=== PATIENT | female | born 1945 | race Caucasian/White ===

== ENCOUNTER → 2017-03-27 | Outpatient (CLI) | payer OTHER | LOC: BMCIMAGING 10:02 | PROVIDERS: ATTEND Nurse Practitioner Adult Health | DX: K59.00 Constipation, unspecified (principal); I72.8 Aneurysm of other specified arteries ==

== ENCOUNTER → 2017-04-23 | Outpatient (CLI) | payer OTHER | LOC: BMCIMAGING 12:15 | PROVIDERS: ATTEND Internal Medicine | DX: R07.9 Chest pain, unspecified (principal); E78.5 Hyperlipidemia, unspecified ==

== ENCOUNTER 2017-04-24 09:43 | Day surgery (SDC) | payer OTHER ==
[2017-04-24] MEDS ORDERED: diphenhydrAMINE 25 MG CAP PO ONE ×2 (09:50→09:55)
[2017-04-24] MEDS ORDERED: NS 1,000 ML IV ONE (09:50)
[2017-04-24] MEDS ORDERED: FAMOTIDINE 20 MG TAB PO ONE (09:50)
[2017-04-24] MEDS ORDERED: DIAZEPAM 5 MG TAB PO ONE (09:50)
[2017-04-24] MEDS ORDERED: ASPIRIN EC 325 MG TAB PO ONE ×2 (09:50→09:55)
[2017-04-24] MEDS ORDERED: FAMOTIDINE 20 MG TAB ONE (09:55)
[2017-04-24] MEDS ORDERED: DIAZEPAM 5 MG TAB ONE (09:56)
--- NOTE | 2017-04-24 10:06 | CPEKG ---
Heart Rate: 57 RR Interval: 1053 P-R Interval: 180 QRSD Interval: 76 QT Interval: 436 QTC Interval: 425 P [place]: 31 QRS [place]: 50 T Wave [place]: 43 EKG Severity - ABNORMAL ECG - EKG Impression: SINUS RHYTHM EKG Impression: CONSIDER LEFT VENTRICULAR HYPERTROPHY Electronically Signed By: Bogdan Xiao 24-Apr-2017 16:07:56
[2017-04-24] MEDS ORDERED: ASPIRIN EC 81 MG TAB PO ONE (10:22)
[2017-04-24 10:25] LABS: % IMMATURE GRANULYOCYTES 0.2 % (0.0-1.1); ABSOLUTE IMMATURE GRANULOCYTES 0.01 10^3/uL (0.00-0.10); ADD DIFF? NO; ADD MORPH? NO; ADD SCAN? NO; ATYPICAL LYMPHOCYTE FLAG 10 (0-99); FRAGMENT RBC FLAG 0 (0-99); HEMATOCRIT 42.7 % (38.0-47.0); HEMOGLOBIN 14.4 g/dL (12.6-16.3); LEFT SHIFT FLG 0 (0-99); LIPEMIA HEMOLYSIS FLAG 80 (0-99); MEAN CELL HEMOGLOBIN 31.5 pg (27.9-34.1); MEAN CELL HEMOGLOBIN CONCENTR. 33.7 g/dL (32.4-36.7); MEAN CELL VOLUME 93.4 fL (81.5-99.8); MEAN PLATELET VOLUME 10.7 fL (8.7-11.7); PLATELET CLUMPS FLAG 0 (0-99); PLATELET COUNT 219 10^3/uL (150-400); RED BLOOD CELL COUNT 4.57 10^6/uL (4.18-5.33); RED CELL DISTRIBUTION WIDTH 13.1 % (11.5-15.2)
[2017-04-24 10:34] LABS: INR 0.94 (0.83-1.16); PROTIME(PATIENT) 12.5 SEC (12.0-15.0)
[2017-04-24 10:49] LABS: ANION GAP 10 mEq/L (8-16); CALCIUM 9.8 mg/dL (8.5-10.4); CARBON DIOXIDE 26 mEq/l (22-31); CHLORIDE 107 mEq/L (97-110); CHOLESTEROL 206 mg/dL (140-220); CHOLESTEROL/HDL RATIO 2.71 RATIO (1.00-4.44); CREATININE 0.6 mg/dL (0.6-1.0); GLOMERULAR FILTRATION RATE > 60; GLUCOSE 96 mg/dL (70-100); HIGH DENSITY LIPOPROTEIN 76 mg/dL (40-85); LDL/HDL RATIO 1.55 RATIO (1.00-3.22); LOW DENSITY LIPOPROTEIN 118 mg/dL (80-100); MAGNESIUM 2.2 mg/dL (1.6-2.3); NON-HIGH DENSITY LIPOPROTEIN 130 mg/dL (90-129); POTASSIUM 4.3 mEq/L (3.5-5.2); SODIUM 143 mEq/L (134-144); TRIGLYCERIDE 62 mg/dL (35-135); VERY LOW DENSITY LIPOPROTEINS 12 mg/dL (8-25)
[2017-04-24] MEDS ORDERED: LIDOCAINE 1% 300 MG/30 ML SDV ONE (13:38)
[2017-04-24] MEDS ORDERED: MIDAZOLAM 2 MG/2 ML VIAL ONE ×2 (13:39→14:35)
[2017-04-24] MEDS ORDERED: VERAPAMIL 5 MG/2 ML VIAL ONE (13:39)
[2017-04-24] MEDS ORDERED: HEPARIN 10,000 UNIT/10 ML MDV ONE (13:39)
[2017-04-24] MEDS ORDERED: IOPAMIDOL (ISOVUE-370) 150 ML BTL IV ONE (13:39)
[2017-04-24] MEDS ORDERED: fentaNYL 100 MCG/2 ML INJ ONE (13:39)
--- NOTE | 2017-04-24 16:06 | PDDXCAT ---
Diagnostic Cath Note - . Date: 04/24/17 Manager Leadership Development: Yeyo Intervention: none *Procedure 1. selective coronary angiography 2. left heart catheterization Indication: CCS Class III angina and intermediate risk stress test Access: Right radial *Materials Left Heart Cath size: 6F Left Heart Cath materials: JL3.5, JR4.0, pigtail *Findings- selective coronary angiography LM: The Left Main is ~8 mm in size. It trifurcates into an LAD, Ramus and circumflex system. There is no evidence of flow-obstructing disease. LEAH III flow is present throughout. Ramus: The Ramus is ~2.5 mm in size. There is no evidence of flow-limiting disease and there is LEAH III flow. LAD: The LAD is ~3.5 mm in size. There is no evidence of flow-limiting disease. Max luminal stenosis is approximately 5- 10%. LEAH III flow present. LCX: The LCX is ~2.5 mm in size and there is no evidence of flow-limiting disease and there is LEAH III flow throughout. RCA: The RCA is 3 mm in size. There is no evidence of flow-limiting disease. The right ventricular branch is quite high in its take off from the proximal RCA , likely a congenital variant. LEAH III flow is present thorughout. *Findings- left heart catheterization LVEDP: 18 mmHg AO: 143/75/103 mmHg LVEF: 65% LVG: NO segmental wall motion abnormalities, basal septum appears thickened with no evidence of gradient upon pullback. There is 2+ MITRAL REGURGITATION WITH PRESSURIZED INJECTION. Summary/Assessment: 1. Non-obstructive CAD. A cause for the patient's angina and troponin elevation was not identified on the basis of this study. 2. I have discussed the case with Dr. Johansen. The patient will need to follow up with an echo to check the thickness of interventricular septum and Mitral regurgitation severity. The MR may be accentuated by the presence of a catheter and a pressurized injection. 3. The patient has calcification in the lungs that may be atypical of a Granuloma. This was discussed with Dr. Johansen. Complications: None Estimated Blood Loss: <50 ml Closure Method: TR Band Patient Problems: Problems Problem Status Onset Kidney stone Active FUO (fever of unknown origin) Acute
== END 2017-04-24 19:00 | disposition home or self-care (01) ==
LOC: FCATH 09:43
PROVIDERS: ATTEND Internal Medicine Cardiovascular Disease
PROC: B2111ZZ Fluoroscopy of Multiple Coronary Arteries using Low Osmolar Contrast (ICD-10-PCS; principal; 2017-04-24)
PROC: 4A023N7 Measurement of Cardiac Sampling and Pressure, Left Heart, Percutaneous Approach (ICD-10-PCS; principal; 2017-04-24)
PROC: B2151ZZ Fluoroscopy of Left Heart using Low Osmolar Contrast (ICD-10-PCS; principal; 2017-04-24)
DX: I25.119 Atherosclerotic heart disease of native coronary artery with unspecified angina pectoris (principal); R79.89 Other specified abnormal findings of blood chemistry; E78.2 Mixed hyperlipidemia
CPT/HCPCS: 93005; 93458; C1769; J1644; J2250; J3010; Q9967

== ENCOUNTER 2017-05-15 23:32 | Emergency (ER) | payer OTHER ==
--- NOTE | 2017-05-16 00:24 | EDPHY ---
H & P Stated Complaint: High BP; "odd feeling in chest", going on trip in AM,wants script Time Seen by Provider: 05/15/17 23:42 HPI/ROS: Chief Complaint: High blood pressure HPI: 71-year-old woman presenting with concerns of high blood pressure this evening. Patient was seen by her primary care physician earlier today and noted to be hypertensive. they had discussed starting the patient on antihypertensive however the patient elected not to. She did go home and purchased a home blood pressure monitor. She checked her blood pressure this evening and noticed at 10:15 a.m. that it was 170/103. She became concerns or checked again in 15 minutes and was 180/108. She is presenting concerned of hypertension. Has had some vague discomfort in her chest which is not new for her. She recently was admitted when she noted to have a Borderline elevated troponin but she had a clean catheterization at that time. denies any headache. No nausea or vomiting. No lightheadedness or dizziness. No fevers or chills. No nausea or vomiting. No shortness of breath. ROS: 10 point Review of Systems is negative except as noted in the HPI. PMH: Possible hypertension Social History: No smoking, no alcohol, no recreational drug use Family History: non-contributory Physical Exam: Gen: Awake, Alert, No Distress HEENT: Nose: no rhinorrhea Eyes: PERRLA, EOMI Mouth: Moist mucosa Neck: Supple, no JVD Chest: nontender, lungs clear to auscultation Heart: S1, S2 normal, no murmur Abd: Soft, non-tender, no guarding Back: no CVA tenderness, no midline tenderness Ext: no edema, non-tender Skin: no rash Neuro: CN II-XII intact, Sensation grossly intact, Strength 5/5 in bilateral upper and lower extremities - Personal History Tetanus Vaccine Date: 10 years ago - Medical/Surgical History Hx Asthma: No Hx Chronic Respiratory Disease: No Hx Diabetes: No Hx Cardiac Disease: No Hx Renal Disease: No Hx Cirrhosis: No Hx Alcoholism: No Hx HIV/AIDS: No Hx Splenectomy or Spleen Trauma: No Other PMH: kidney stones, appendectomy, lithotripsy - Social History Smoking Status: Never smoked Constitutional: Initial Vital Signs Temperature (C) 36.7 C 05/15/17 23:34 Heart Rate 55 L 05/15/17 23:34 Respiratory Rate 20 07/27/17 23:34 Blood Pressure 173/96 H 05/15/17 23:34 O2 Delivery Mode Room Air Allergies/Adverse Reactions: codeine [Codeine] Allergy (Unknown, Verified 10/01/14 02:03) sulfamethoxazole [From Bactrim] Allergy (Verified 10/01/14 10:45) trimethoprim [From Bactrim] Allergy (Verified 10/01/14 10:45) Home Medications: Medication Instructions Recorded Acetaminophen [Tylenol 325mg (*)] 650 mg PO Q6 PRN 09/23/14 ALPRAZolam [Xanax 0.25 MG (*)] 0.25 mg PO AD PRN 04/24/17 Aspirin EC [Aspirin EC 81 mg (*)] 81 mg PO HS 04/24/17 Cholecalciferol Vit D3 [Vitamin D3 2,000 units PO DAILY 04/24/17 (*)] Cyanocobalamin [Vitamin B12 (*)] 500 mcg PO DAILY 04/24/17 Ibandronate Sodium [Boniva] 150 mg PO Q30D 04/24/17 Lovastatin 40 mg PO DAILY18 04/24/17 Tamsulosin HCl [Flomax 0.4 MG (*)] 0.4 mg PO DAILY 04/24/17 Medical Decision Making ED Course/Re-evaluation: 8-year-old woman with hypertension at home. She is concerned because she measure blood pressure was very high. She does some vague chest discomfort associated with this however she had a clean catheterization just a couple of weeks ago. I have discussed with her at length blood pressure management. I do not think she meets criteria for acute hypertensive urgency at this time. Repeat blood pressure here was 153/101. Patient will be discharged with instructions return for any concerning symptoms including headache, nausea, vomiting, chest pain or fainting. She will otherwise follow up with primary care physician on Friday to initiate outpatient blood pressure management. Departure - Departure Disposition: Home, Routine, Self-Care Clinical Impression: Hypertension Condition: Good Instructions: Hypertension (ED) Additional Instructions: Follow up with primary care physician in 3 days to initiate blood pressure medicines. Return emergency department for severe headache, nausea, vomiting, dizziness, chest pain, shortness of breath, or any other concerns. Referrals: Radha Juarez MD [Primary Care Provider] - As per Instructions
[2017-05-16 00:55] VITALS: RESP 14
[2017-05-16 01:17] VITALS: BP 162/102; PULSE 52; TEMP 97.7; O2SAT 93
== END 2017-05-16 01:16 | disposition home or self-care (01) ==
DX: I10 Essential (primary) hypertension (principal); Z79.82 Long term (current) use of aspirin

== ENCOUNTER → 2017-10-08 | Outpatient (CLI) | payer OTHER | LOC: BMCIMAGING 07:30 | PROVIDERS: ATTEND Internal Medicine | DX: Z12.31 Encounter for screening mammogram for malignant neoplasm of breast (principal) | CPT/HCPCS: G0202 ==

== ENCOUNTER → 2018-02-17 | Outpatient (CLI) | payer OTHER | LOC: BMCIMAGING 12:39 | PROVIDERS: ATTEND Physician Assistant Medical | DX: K59.00 Constipation, unspecified (principal); M51.36 Other intervertebral disc degeneration, lumbar region; M41.86 Other forms of scoliosis, lumbar region; I87.8 Other specified disorders of veins ==

== ENCOUNTER → 2018-10-27 | Outpatient (CLI) | payer OTHER | LOC: BMCIMAGING 08:35 | PROVIDERS: ATTEND Nurse Practitioner Adult Health | DX: Z12.31 Encounter for screening mammogram for malignant neoplasm of breast (principal) ==

== ENCOUNTER → 2018-12-14 | Outpatient (CLI) | payer OTHER | LOC: BMCIMAGING 10:01 | PROVIDERS: ATTEND Internal Medicine Rheumatology | DX: Z13.820 Encounter for screening for osteoporosis (principal); M81.0 Age-related osteoporosis without current pathological fracture; Z78.0 Asymptomatic menopausal state ==